=== PATIENT | male | born 1975 | race African-American/Black ===

== ENCOUNTER 2020-08-11 07:41 | Emergency (ER) | payer OTHER ==
[~2020-08-11] VITALS: Ht 167.6 cm; Wt 77.0 kg
[2020-08-11] MEDS ORDERED: HYDROCODONE/ACETAMINOPHEN 5/325MG TABLET PO STA (08:12)
[2020-08-11 09:19] LABS: BASOPHILS % 0.7 % (0.0-2.0); EOSINOPHILS % 3.3 % (0.0-5.0); HEMOGLOBIN. 14.8 g/dL (14.0-18.0); MEAN CORPUSCULAR HEMOGLOBIN 31.1 pg (28.0-32.0); MEAN CORPUSCULAR VOLUME 90.6 fL (80.0-94.0); MEAN PLATELET VOLUME 8.8 fl (7.4-10.4); MONOCYTES % 9.1 % (2.0-8.0); NEUTROPHILS % 54.9 % (40.0-76.0); PLATELET 184 x1000/uL (130-400); RED BLOOD CELL COUNT 4.75 mill/uL (4.7-6.1); RED CELL DISTRIBUTION WIDTH 13.1 % (11.6-14.6)
[2020-08-11 09:28] LABS: CHLORIDE 104 mEq/L (98-107)
[2020-08-11 10:25] VITALS: BP 130/85
[2020-08-11] MEDS ORDERED: NAPR500T7 MT (10:59)
== END 2020-08-11 11:54 | disposition home or self-care (01) ==
LOC: ER 07:41
DX: R07.89 Other chest pain (principal); M25.511 Pain in right shoulder
CPT/HCPCS: 36415; 71045; 73030; 80053; 83880; 84484; 85025; 93005; 93971; 99285

== ENCOUNTER 2024-08-07 11:40 | Emergency (ER) | payer MEDICAID, OTHER ==
[~2024-08-07] VITALS: Ht 170.2 cm; Wt 60.0 kg
[~2024-08-07 11:40] MED LIST: NAPR-1486 MT
[2024-08-07 12:06] VITALS: O2SAT 99
[2024-08-07] MEDS ORDERED: CETI10CA2 MT (12:29)
[2024-08-07] MEDS ORDERED: KETO-98 EACHEYE (12:30)
[2024-08-07 13:13] VITALS: BP 160/98; PULSE 73; RESP 14; TEMP 36; O2SAT 99
== END 2024-08-07 13:12 | disposition home or self-care (01) ==
LOC: ER 11:51
DX: B30.8 Other viral conjunctivitis (principal)
CPT/HCPCS: 99282